=== PATIENT | female | born 1950 | race Hispanic/Latino ===

== ENCOUNTER 2018-08-21 08:51 | Outpatient (CLI) | payer OTHER ==
--- NOTE | 2018-08-21 13:12 | RAD ---
RADIOGRAPH CHEST 2 VIEWS: Date: 08/21/2018 Time: 8:58 a.m. HISTORY: A 68-year-old female with severe, persistent reactive airways disease without complication. COMPARISON: None available. FINDINGS: There is a focal air space opacity in the lingula, partially silhouetting the left cardiac border. N o moderate sized or large pleural effusion. No cardiomegaly or pulmonary edema. No pneumothorax. T here is an irregularly-shaped, approximately 1.3 cm, nodular density in the right upper lobe, close t o the right hilum. IMPRESSION: 1. Opacity in the lingula of the left upper lobe, suspicious for pneumonia. 2. Recommend serial follow-up chest radiographs (beginning in five to seven days) after treatment, u ntil complete resolution, in order to rule out the alternative possibility of malignant neoplastic tu mor. 3. A prominent right upper lobe lobulated pulmonary nodule. Uncertain whether or not calcified. CT recommended after the series of follow up chest radiographs. ANGELI [] POS: CASSI
== END 2018-08-21 08:52 | disposition home or self-care (01) ==
LOC: BICRAD 08:51
PROVIDERS: ATTEND Internal Medicine
DX: J45.50 Severe persistent asthma, uncomplicated (principal); R91.8 Other nonspecific abnormal finding of lung field
CPT/HCPCS: 71046